=== PATIENT | female | born 1985 | race Caucasian/White ===

== ENCOUNTER 2018-04-21 04:41 | Inpatient (IN) | payer MEDICAID ==
[2018-04-21] MEDS ORDERED: Sodium Citrate/Citric Acid 15 ml Sol PO ONE (05:52)
[2018-04-21] MEDS ORDERED: cefOXitin IV 2 gm in Saline 2 GM in Sodium Chloride 0.9% 50 ML IV STA (05:54)
--- NOTE | 2018-04-21 06:00 | OBADHP ---
Datetime: 04/21/2018 05:54 Admit Comment, IP Provider: 33 y/o @ 38.5 wks GA RIMMA 04/30/2018 reports ctx pain since 12:30 initially every 15 min now every 5 min increasing intensity adn frequency 8/10, dnies lof, vb, +FM. P t reprots receives prental care wtih Dr Jimenez adn transferred to [facility] . 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: Denies PMH: GERD PSH: CxS x 2 FHX :non contribotyr MEDS: pepcid NKDA SHX :negative etoh/tobacco/drugs A/P 33 yp @ 38.5 wks GA 2 prevoius CxS jessie in sabrina labor -admit to L+D -npo, ivf -admission labs -perop antibiocs -scds, abodminal prep, cody to gravity -OR/Anestehsia aware -declines for BTL, no papers Pelvic Type - PN: Adequate Extremities - PN: Normal Abdomen - PN: Normal Back - PN: Normal Breast - PN: Not Done Lungs - PN: Normal Heart - PN: Normal Thyroid - PN: Not Done Neurologic - PN: Not Done HEENT - PN: Normal General - PN: Normal Presentation-Admit: Vertex FHR - Baseline A Provider: 130 Membranes, Provider: Intact Gestation - Est Wks by US: 38.5 IP Hx Assessment: The History has been Reviewed and is Current Vital Signs Provider: Reviewed IP Chief Complaint: Uterine contractions NICHD Variability Prov Fetus A: Moderate 6-25bpm NICHD Decel Fetus A IP Provider: None Dilatation, Provider: 1 Effacement, Provider: 50 Station, Provider: -3 Genitourinary Exam: Normal DTRs - PN: Normal EGA AdmitDate IP: 38.5 IP Adm Impression: Term, intrauterine IP Admit Plan: Admit to unit; Initiate Section protocol
[2018-04-21 06:56] LABS: BASO # 0.1 K/uL (0.0-0.2); BASO % 0.8 % (0.0-2.0); EOS # 0.1 K/uL (0.0-0.7); EOS % 1.5 % (0.0-4.0); HEMOGLOBIN 11.4 g/dL (11.0-16.0); LYMPH # 1.7 K/uL (1.0-4.3); LYMPH % 20.1 % (20.0-40.0); MEAN CELL VOLUME 75.2 fL (81.0-99.0); MEAN CORPUSCULAR HGB CONC 33.3 g/dL (33.0-37.0); MEAN PLATELET VOLUME 8.6 fL (7.2-11.7); MONO # 0.7 K/uL (0.0-0.8); MONO % 8.6 % (0.0-10.0); NEUT # 5.9 K/uL (1.8-7.0); NRBC % 0.1 % (0.0-2.0); RBC 4.57 Mil/uL (3.80-5.20); RED CELL DISTRIBUTION WIDTH 14.4 % (11.5-14.5); WHITE BLOOD COUNT 8.6 K/uL (4.8-10.8)
[2018-04-21 06:58] LABS: SQUAMOUS EPITHIAL 1 /hpf (0-5); URINE BILIRUBIN NEGATIVE (NEGATIVE); URINE BLOOD NEGATIVE (NEGATIVE); URINE CLARITY Hazy (Clear); URINE COLOR Yellow (YELLOW); URINE GLUCOSE (UA) NORMAL (Normal); URINE LEUKOCYTE ESTERASE NEG Leu/uL (Negative); URINE PROTEIN NEGATIVE (NEGATIVE); URINE UROBILINOGEN NORMAL mg/dL (0.2-1.0)
[2018-04-21 07:09] LABS: AST/SGOT 24 U/L (14-36); BLOOD UREA NITROGEN 8 mg/dL (7-17); CALCIUM 8.4 mg/dl (8.6-10.4); GFR AFRICAN-AMERICAN > 60; GFR NON-AFRICAN AMERICAN > 60
[2018-04-21] MEDS ORDERED: cefOXitin 2 GM in Sodium Chloride 0.9% 100 ML IV STA (07:21)
[2018-04-21] MEDS ORDERED: Sodium Citrate/Citric Acid 15 ml Sol ONE (07:22)
[2018-04-21] MEDS ORDERED: Oxytocin 20 units in LR 2,000 ML IV ONE (07:50)
[2018-04-21] MEDS ORDERED: Phenylephrine 10 mg/ml Inj ONE (08:34)
[2018-04-21] MEDS ORDERED: ePHEDrine 50 mg/ml Inj ONE (08:34)
[2018-04-21] MEDS ORDERED: Morphine 1 mg/ml preservative-free Inj(Duramorph) ONE (08:52)
--- NOTE | 2018-04-21 09:35 | OBDS ---
DELIVERY PERSONNEL Delivery Doctor: Terrence June MD Guitar Repair Technician: Joshua Mccoy RN Anesthesiologist: Alivia Cid MD Resident: nidia MATERNAL INFORMATION Delivery Anesthesia: Spinal Placenta Cultured: No Maternal Complications: Other Other Maternal Complications: previous c/s times2 in early labor Provider Comments: baby deliverd in [place]. end clean 9/9 cord arrounf neck no com LABOR SUMMARY EDC: 04/30/2018 00:00 No. Babies in Womb: 1 Attempted: No Labor Anesthesia: None LABOR INFORMATION Reason for Induction: Not Applicable Onset of Labor: 04/21/2018 00:30 Oxytocin: N/A Group B Beta Strep: Not Done Antibiotics # of Doses: 1 Antibiotics Time of Last Dose: 845am Steroids Given: None Reason Steroids Not Administered: Not Applicable MEMBRANES Membranes Rupture Method: Artificial Rupture of Membranes: 04/21/2018 09:09 Length of Rupture (hrs): 0.02 Amniotic Fluid Color: Clear Amniotic Fluid Amount: Moderate Amniotic Fluid Odor: Normal STAGES OF LABOR Stage 3 hrs: 0 Stage 3 min: 1 Total Time in Labor hrs: 8 Total Time in Labor min: 41 CSECTION DELIVERY Primary Indication: Other Other Primary Indication: previous c/s times 2 CSection Urgency: Non Elective CSection Incidence: Repeat Labor: Labor Elective: Nonelective CSection Incision: Lower Uterine Transverse BABY A INFORMATION Delivery Date/Time: 04/21/2018 09:10 Method of Delivery: Born in Route : No : N/A Forceps: N/A Vacuum Extraction: N/A Shoulder Dystocia : No SHOULDER DYSTOCIA BABY A Delivery Date/Time: 04/21/2018 09:10 PRESENTATION/POSITION BABY A Presentation: Cephalic Cephalic Presentation: Vertex Vertex Position: Left Occipital Anterior Breech Presentation: N/A PLACENTA INFORMATION BABY A Placenta Delivery Time : 04/21/2018 09:11 Placenta Method of Delivery: Manual Removal Placenta Status: Delivered SCORES BABY A Heart Rate 1 min: >100 bpm Resp Effort 1 min: Good Cry Reflex Irritability 1 min: Cough or Sneeze or Pulls Away Muscle Tone 1 min: Active Motion Color 1 min: Body [place], Extremities Blue Resuscitation Effort 1 min: N/A SCORE 1 MIN: 9 Heart Rate 5 min: >100 bpm Resp Effort 5 min: Good Cry Reflex Irritability 5 min: Cough or Sneeze or Pulls Away Muscle Tone 5 min: Active Motion Color 5 min: Body [place], Extremities Blue Resuscitation Effort 5 min: N/A SCORE 5 MIN: 9 INFORMATION BABY A Gestational Age at Delivery: 38.5 Gestational Status: Term Outcome : Liveborn Infant Condition : Stable Sex: Female IDENTIFICATION/MEDS BABY A ID Band Number: [id number] ID Band Location: Left Leg; Left Arm Sensor Applied: Yes Sensor Number: [id number] Sensor Location : Right Leg WEIGHT/LENGTH BABY A Infant Birthweight (gms): 3020 Weight (lb): 6 Infant Weight (oz): 10 Length Inches: 18.25 Length cms: 46.4 CORD INFORMATION BABY A No. Cord Vessels: 3 Nuchal Cord : Around Neck x1, Loose Cord Blood Taken: Yes Suction: Mouth; Nose
[2018-04-21] MEDS ORDERED: Oxycodone/Acetaminophen 5/325 mg Tab PO PRN (09:54)
[2018-04-21] MEDS ORDERED: DiphenhydrAMINE 50 mg/ml Inj IVP PRN (09:56)
[2018-04-21] MEDS ORDERED: Morphine 4 MG/ML VIAL IVP PRN (09:57)
[2018-04-21] MEDS: Simethicone 80 mg Chewtab PO SCH ×3 (14:05→22:00)
[2018-04-21] MEDS: Lactated Ringer's 1,000 ML IV SCH (18:52)
--- NOTE | 2018-04-21 19:09 | PCM.SURG1 ---
Surgeon's Initial Post Op Note - Surgeon's Notes Surgeon: dr thomason Project Control Manager: dr klein Type of Anesthesia: Spinal Anesthesia Administered By: dr riley Pre-Operative Diagnosis: 33 yr at 38.5weeks previous c/s in early labor Operative Findings: see the op reort Post-Operative Diagnosis: same Operation Performed: repeat section Specimen/Specimens Removed: cord blood. cord gas Estimated Blood Loss: EBL {In ML}: 700 Blood Products Given: N/A Drains Used: No Drains Post-Op Condition: Good Date of Surgery/Procedure: 04/21/18 Time of Surgery/Procedure: 18:00
[2018-04-22] MEDS: Oxycodone/Acetaminophen 5/325 mg Tab PO PRN ×2 (05:54→21:52)
--- NOTE | 2018-04-22 08:14 | OP ---
PROCEDURE DATE: 04/21/2018 PREOPERATIVE DIAGNOSIS: A 33-year-old 3, para 2 at 38 weeks and 5 days with pelvic pain, previous section. POSTOPERATIVE DIAGNOSIS: A 33-year-old 3, para 2 at 38 weeks and 5 days with pelvic pain, previous section. SURGEON: Terrence June MD CRTTS: Dr. Russo, who was present throughout the surgical exposure, retraction, pushing at the time of the delivery. ANESTHESIA: Spinal. ANESTHESIOLOGIST: Dr. Cid. COMPLICATIONS: None. PROCEDURE PERFORMED: Repeat section . DESCRIPTION OF PROCEDURE: The patient was brought to the operating room and placed on the table where spinal anesthesia was given. She was prepped and draped in normal sterile fashion. At the site of the previous skin incision, an incision was made with a knife; the subcutaneous cut with a Bovie. The fascia was then excised on both the sides using curved Trevino scissors. The fascia was from the site of the umbilicus and at the site of the rectus muscle after that. Rectus muscle was lifted up with two Allis scissors, it was cut with a knife, and then the peritoneum was lifted up and it was cut using a knife. After that, bladder blade was placed. Bladder flap was created. The lower uterine segment incision was made with a knife. It was extended using Bovie and curved Trevino scissors. Baby was delivered in HAILEE position. Cord was clamped and cut. There was a cord around the baby's neck, which was reduced. Placenta was delivered manually and sent to the pathology. Uterus was exteriorized and cleared of all clots and debris. The uterine incision was closed using #1 Vicryl in running interlocking fashion, second layer was closed with the same stitch. The cul-de-sac was cleared of all the clots and debris, uterus was returned back to the abdominal cavity. Gutters were cleared of clots and debris. Then the peritoneum was closed using 2-0 Vicryl in running interlocking fashion. Muscle was closed using 2-0 Vicryl in running interlocking fashion. The fascia was then closed using #1 Vicryl in running interlocking fashion. Skin was closed using 3-0 Monocryl straight needle. The patient tolerated the procedure well. Lap, sponge, and instrument counts were correct x2. Terrence June MD
--- NOTE | 2018-04-22 08:48 | RAD ---
HISTORY: positive quantiferon gold COMPARISON: No prior. FINDINGS: LUNGS: No active pulmonary disease. PLEURA: No significant pleural effusion identified, no pneumothorax apparent. CARDIOVASCULAR: Normal. OSSEOUS STRUCTURES: No significant abnormalities. VISUALIZED UPPER ABDOMEN: Normal. OTHER FINDINGS: None. IMPRESSION: No active disease.
[2018-04-22 08:55] LABS: BASO % 0.4 % (0.0-2.0); EOS % 0.3 % (0.0-4.0); HEMOGLOBIN 11.3 g/dL (11.0-16.0); LYMPH # 1.4 K/uL (1.0-4.3); LYMPH % 12.5 % (20.0-40.0); MEAN CELL VOLUME 74.7 fL (81.0-99.0); MEAN CORPUSCULAR HEMOGLOBIN 24.2 pg (27.0-31.0); MEAN CORPUSCULAR HGB CONC 32.3 g/dL (33.0-37.0); MEAN PLATELET VOLUME 8.1 fL (7.2-11.7); MONO % 9.1 % (0.0-10.0); NEUT # 8.4 K/uL (1.8-7.0); NEUT % 77.7 % (50.0-75.0); NRBC % 0.1 % (0.0-2.0); RBC 4.66 Mil/uL (3.80-5.20); RED CELL DISTRIBUTION WIDTH 14.5 % (11.5-14.5); WHITE BLOOD COUNT 10.8 K/uL (4.8-10.8)
[2018-04-22] MEDS: Simethicone 80 mg Chewtab PO SCH ×4 (09:53→21:50)
[2018-04-22] MEDS ORDERED: Bisacodyl 5mg EC Tab PO ONE (09:55)
[2018-04-22] MEDS: Lactated Ringer's 1,000 ML IV SCH (11:32)
[2018-04-22] MEDS ORDERED: Apap-Butalbital-Caffeine 325-50-40mg Tab PO SCH (12:00)
[2018-04-22] MEDS: Apap-Butalbital-Caffeine 325-50-40mg Tab PO SCH ×3 (14:08→20:23)
--- NOTE | 2018-04-22 15:20 | OBPPN ---
Datetime: 04/22/2018 15:14 PP Pain Prov: Within normal limits PP Nausea Prov: Denies PP Flatus Prov: Yes PP BM Prov: Yes PP Heart Prov: Normal PP Lungs Prov: Normal PP Abdomen/Uterus Prov: Normal PP Lochia Prov: Normal PP Vulva/Perineum Prov: Normal PP CVA Tenderness Prov: Normal PP Extremities Prov: Normal PP C/S Incision Prov: Normal PP Progress Prov: Normal PP Impression Prov: Endometritis PP Plan Prov: Continue present management PP Progress Note Prov: PT is 33 POD #1 for Repeat section in labor. 1) Vitals stable. 2) + quantiferon (TB) -> CXR pending. IP PP Procedures Comments: CXR- for +quantiferon Vital Signs Provider PP: Reviewed
[2018-04-22 21:20] VITALS: O2SAT 98
[2018-04-23] MEDS: Apap-Butalbital-Caffeine 325-50-40mg Tab PO SCH ×6 (00:50→20:09)
[2018-04-23] MEDS: Oxycodone/Acetaminophen 5/325 mg Tab PO PRN (04:18)
[2018-04-23] MEDS: Simethicone 80 mg Chewtab PO SCH ×4 (10:24→21:59)
[2018-04-23] MEDS: Lactated Ringer's 1,000 ML IV SCH ×2 (11:55→20:15)
--- NOTE | 2018-04-23 23:20 | OBPPN ---
Datetime: 04/23/2018 07:47 PP Pain Prov: Within normal limits PP Nausea Prov: Denies PP Flatus Prov: No PP BM Prov: Yes PP Breasts Prov: Normal PP Heart Prov: Normal PP Lungs Prov: Normal PP Abdomen/Uterus Prov: Normal PP Lochia Prov: Normal PP Vulva/Perineum Prov: Normal PP Extremities Prov: Normal PP C/S Incision Prov: Normal PP Progress Prov: Normal PP Impression Prov: Normal progression PP Plan Prov: Continue present management PP Progress Note Prov: Patient seen and examined at bedside. Per nursing no acute events overnight. Patient is doing well, having occasional abdominal cramping and shoulder pain. States that headaches are getting better. Lochia is mild. Urinating without difficulty. Denies passing flatus. Having loose BMs. Breast feeding. Denies dizziness, cp, palpitations, sob, abdominal pain, urinary symptoms. VS: 108/61 65 98.7 Gen: AAOx3 CV: RRR Lungs: CTA B/L Abd: Soft, appropriately tender, fundus firm at 1 fingerbreath below umbilicus, incision c/d/i wit h steristrips Ext: No clubbing, cyanosis, edema; no calf tenderness Labs: 8.6>11.4/34.3<300 10.8>11.3/34.8<318 B positive Rubella immune A/P: 33 year old at 38w5d s/p RLTCD POD#2. Spinal headache. -Stable, afebrile -Pain control: Motrin and Percocet prn -Headache: Continue Fiorecet prn -Encourage ambulation and hydration -Encourage -Continue routine care -Quantiferon gold positive - CXR was negative -Anticipate D/C home tomorrow -Plan discussed with Dr Deepak Esquivel DO PGY-1 Attending Note: patient seen and evaluated by me with the resident. I agree with the above. Probab le spinal headache is improving. Patient is clinically stable. Plan: 1) As above 2) Anticipate discharge home 5/24/18 Vital Signs Provider PP: Reviewed; Within Normal Limits
[2018-04-24] MEDS: Apap-Butalbital-Caffeine 325-50-40mg Tab PO SCH ×4 (00:17→12:11)
[2018-04-24] MEDS: Lactated Ringer's 1,000 ML IV SCH (04:28)
--- NOTE | 2018-04-24 08:28 | OBDCSUM ---
Datetime: 04/24/2018 08:24 Discharged to, Provider: Home Follow up at, Provider: 1 week for spinal ANTHONY Disch Instr Activity: Normal activity Disch Instr Diet: Regular Discharge Instructions, Provider: Routine instructions given Discharge Diagnosis, Provider: Term Delivered Discharge Time: 04/24/2018 08:24 Disch Referrals: None Contraception discussed, Prov: Yes Disch Activity Restrictions: No exercising; No lifting; No driving Discharge Comment, Provider: 33 s/p RCS. POD#3. Had spinal ANTHONY after delivery controlled with Fi orcet. Pt had +PPD quant, CXR was negative. Blood type: B+/-. Breast feeding. PE: incision C/D/I. Labs: hgb 11.3, B+/- A/P: RCS POD#3. 1) vitals stable. 2) Spinal ANTHONY: will C/S with Fiorcet. F/U 1 week PP for evaluation. 3) Discharge home.
[2018-04-24] MEDS: Simethicone 80 mg Chewtab PO SCH (10:03)
[2018-04-24 18:44] VITALS: BP 112/70; PULSE 76; RESP 18; TEMP 97.2
== END 2018-04-24 14:30 | disposition home or self-care (01) | DRG 370 ==
LOC: C.EROB 04:41 → C.4D 05:57 → C.4M 12:09
PROVIDERS: ADMIT Obstetrics & Gynecology; ATTEND Obstetrics & Gynecology
PROC: 10D00Z1 Extraction of Products of Conception, Low, Open Approach (ICD-10-PCS; principal; 2018-04-21)
DX: O34.219 Maternal care for unspecified type scar from previous cesarean delivery (principal); O74.5 Spinal and epidural anesthesia-induced headache during labor and delivery; O69.81X0 Labor and delivery complicated by cord around neck, without compression, not applicable or unspecified; Z3A.38 38 weeks gestation of pregnancy; Z37.0 Single live birth